=== PATIENT | male | born 1960 | race Caucasian/White ===

== ENCOUNTER 2017-07-05 13:58 | Emergency (ER) | payer SELFPAY ==
[~2017-07-05] VITALS: Ht 162.6 cm; Wt 83.9 kg
[2017-07-05 14:09] VITALS: BP_SYST 138
[2017-07-05] MEDS ORDERED: DIPH-TET-PERTUS Vaccine 0.5 ML VIAL (ADACEL) I.M. ONE (16:15)
[2017-07-05] MEDS ORDERED: ceFAZolin SODIUM 1 GM VIAL IM ONE (16:15)
[2017-07-05] MEDS ORDERED: BACITRACIN 1 GM OINT TP ONE (16:15)
[2017-07-05] MEDS ORDERED: LIDOCAINE 2%, 20 ML MDV IJ ONE (16:15)
[2017-07-05] MEDS ORDERED: HYDROcodone/ACETAMIN 5-325 MG TAB (NORCO/ VICODIN) PO ONE (16:15)
[2017-07-05 17:10] VITALS: BP_SYST 126
== END 2017-07-05 17:10 | disposition home or self-care (01) ==
LOC: SED 13:58
DX: S61.012A Laceration without foreign body of left thumb without damage to nail, initial encounter (principal); W29.8XXA Contact with other powered hand tools and household machinery, initial encounter; Y93.89 Activity, other specified; Y92.89 Other specified places as the place of occurrence of the external cause; Y99.0 Civilian activity done for income or pay
CPT/HCPCS: 12002; 73140; 90471; 90715; 96372; 99284; J0690; J2001